=== PATIENT | male | born 1965 | race Caucasian/White ===

== ENCOUNTER 2018-10-13 06:15 | Day surgery (SDC) | payer BC ==
[2018-10-03 13:32] VITALS: BMI 26.9
[2018-10-13] MEDS ORDERED: BUPIVACAINE HCL/EPINEPHRINE/PF 30 ML VIAL IJ ONE (07:11)
[2018-10-13] MEDS ORDERED: EPINEPHrine 1:1,000 1 MG/1 ML - 30ML VIAL (INJECTION) ONE (07:11)
[2018-10-13] MEDS ORDERED: MIDAZOLAM HCL 2 MG/2 ML SINGLE DOSE VIAL ONE (07:16)
[2018-10-13] MEDS ORDERED: ROPIVACAINE HCL 0.5% 30ML VIAL ONE (07:16)
[2018-10-13] MEDS ORDERED: BUPIVACAINE LIPOSOME/PF (EXPAREL) 266 MG/20 ML VIAL ONE (07:20)
[2018-10-13] MEDS ORDERED: DEXAMETHASONE SOD PHOSPHATE 4 MG/1 ML VIAL ONE (07:25)
[2018-10-13] MEDS ORDERED: SODIUM CHLORIDE 0.9% P/F 10 ML VIAL IJ ONE (07:25)
[2018-10-13] MEDS ORDERED: ceFAZolin SODIUM 1 GM VIAL ONE (07:25)
[2018-10-13] MEDS ORDERED: SUCCINYLCHOLINE CHLORIDE 200 MG/10 ML VIAL ONE (07:25)
[2018-10-13] MEDS ORDERED: ONDANSETRON 4 MG/2 ML VIAL ONE (07:25)
[2018-10-13] MEDS ORDERED: LIDOCAINE HCL/PF 2% SDV 5ML VIAL ONE (07:25)
[2018-10-13] MEDS ORDERED: PROPOFOL 20 ML ONE ×4 (07:25→09:10)
[2018-10-13] MEDS ORDERED: ePHEDrine SULFATE 50 MG/1 ML AMPULE ONE (08:54)
[2018-10-13] MEDS ORDERED: oxyCODONE HCL 5 MG TABLET PO PRN ×2 (10:02)
[2018-10-13] MEDS ORDERED: ONDANSETRON 4 MG/2 ML VIAL IVPUSH PRN (10:02)
[2018-10-13] MEDS ORDERED: LACTATED RINGERS SOLUTION 1,000 ML IV SCH (10:15)
--- NOTE | 2018-10-13 10:43 | OP ---
Operative Note - Note: Operative Date: 10/13/18 Pre-Operative Diagnosis: Right [place]oulder biceps tendonitis, rotator cuff tear Operation: Rigth shoulder biceps tenodesis, right shoulder rotator cuff tear Post-Operative Diagnosis: Same as Pre-op Surgeon: Get Orozco Anesthesiologist/APPRAISAL MANAGER: Heron Gallegos Anesthesia: General Operative Report Dictated: Yes
--- NOTE | 2018-10-13 10:43 | DS ---
Physical Examination Vital Signs: Vital Signs Temperature 97.7 F 10/13/18 10:15 Pulse Rate 68 10/13/18 10:15 Respiratory Rate 18 10/13/18 10:15 Blood Pressure 129/81 10/13/18 10:15 O2 Sat by Pulse Oximetry (%) 96 10/13/18 10:15 Discharge Summary Reason For Visit: ROTATOR CUFF TEAR, BICEPS TENDINITIS RT SHOULDER Condition: Good - Instructions Diet, Activity, Other Instructions: Post Operative Instructions: Shoulder Arthroscopy & Biceps Tendon Repair Dr Get Orozco 1. Pain following a Shoulder Arthroscopy is variable and can be significant. Some patients will have more pain than others. You have been provided with a prescription for medication that contains a narcotic. You are not allowed to drive while on this medication. You can take Tylenol (Acetaminophen) when taking the pain medication. Feel free to take medications such as Ibuprofen or Naprosyn in addition to the pain medicine if you do not have any problems with the NSAID class of medications. 2. Apply ice to the shoulder for 15 minutes every hour. You may continue this for as many days as necessary. 3. You may find sleeping on an incline (reclining chair) to be more comfortable for the first few days. 4. You must remain in your sling at all times except when showering. The only exception to this is to allow you to stretch your elbow a few times a day to prevent your hand and forearm from swelling. 5. You are not to use your arm to reach for anything, lift anything or carry anything until instructed otherwise. 6. You may remove the bandages in 48 hours. You may shower at that point. 7. Place band-aids on the sutures after your shower.Do not put any creams or lotions on the incision until after the sutures are removed. 8. Please call the office to schedule a visit to have your sutures removed. 9. If for any reason you believe you may have an infection or are concerned, please feel free to call me. I can be reached through our office number 24 hours a day. 10. Please call our office with any questions; we will review the surgical findings during your post-operative visit. Disposition: HOME - Home Medications Comprehensive Discharge Medication List: Ambulatory Orders Adalimumab [Humira] 40 mg SQ ASDIR 10/03/18 Ibuprofen 600 mg PO PRN PRN 10/03/18
--- NOTE | 2018-10-13 12:29 | SURG ---
Surgery Regional Construction Manager Note Regional Construction Manager: Aditya Issa PA-C Date of Service: 10/13/18 Diagnosis: Right Shoulder biceps tendonitis, rotator cuff tear Procedure: Right shoulder arthroscopy, biceps tenodesis, right shoulder rotator cuff tear I was present for the entirety of the operative procedure. For further detail, please refer to operative report. Visit type - Case Type Case Type: Scheduled - New patient This patient is new to me today: Yes Date on this admission: 10/13/18
[2018-10-13 12:58] VITALS: TEMP 97.6
[2018-10-13 13:01] VITALS: BP 119/67; PULSE 82
--- NOTE | 2018-10-17 17:27 | PATH ---
Surgical Pathology Report Patient Name: VAL NICE [facility]. Rec. #: [id number] /Age/Gender: 1965 (Age: 53) / M Account: [id number] Location: [facility] Taken: 10/13/2018 Received: 10/13/2018 Reported: 10/17/2018 Physicians: Get Orozco M.D. Specimen(s) Received A: SHAVINGS RIGHT SHOULDER B: RIGHT BICEPS TENDON Clinical History Right rotator cuff tear, tendinitis Final Diagnosis A. SHOULDER SHAVINGS, RIGHT, ARTHROSCOPY, ROTATOR CUFF REPAIR: FRAGMENTS OF BENIGN CARTILAGE, DENSE FIBROCONNECTIVE TISSUE, AND ADIPOSE TISSUE. B. BICEPS TENDON, RIGHT,TENODESIS SKELETAL MUSCLE AND SCANT FIBROADIPOSE TISSUE. Electronically Signed Bernarda Rosario M.D. Gross Description A. Received in formalin, labeled "shavings right shoulder," is a 3.0 x 2.5 x 0.3 cm. aggregate of magana-yellow soft tissue fragments. A premium service representative portion is submitted in one cassette. B. Received in formalin labeled "right biceps tendon," is a 10.0 x 0.7 x 0.3 cm magana portion of tendon. Tree Specialist sections are submitted in one cassette. 10/16/2018 saudi10/16/2018
== END 2018-10-13 11:40 | disposition home or self-care (01) ==
LOC: FASU 06:15
PROVIDERS: ATTEND Orthopaedic Surgery
PROC: 0LS10ZZ Reposition Right Shoulder Tendon, Open Approach (ICD-10-PCS; 2018-10-13)
PROC: 0LQ14ZZ Repair Right Shoulder Tendon, Percutaneous Endoscopic Approach (ICD-10-PCS; principal; 2018-10-13 08:38)
PROC: 0RBJ4ZZ Excision of Right Shoulder Joint, Percutaneous Endoscopic Approach (ICD-10-PCS; 2018-10-13 08:38)
DX: M75.101 Unspecified rotator cuff tear or rupture of right shoulder, not specified as traumatic (principal); M75.21 Bicipital tendinitis, right shoulder; M66.811 Spontaneous rupture of other tendons, right shoulder; M19.011 Primary osteoarthritis, right shoulder
CPT/HCPCS: 88304-TC; 94760